=== PATIENT | female | born 1980 | race African-American/Black ===

== ENCOUNTER 2018-04-03 10:23 | Inpatient (IN) ==
--- NOTE | 2018-04-03 11:24 | ED ---
History of Present Illness Primary Care Physician: No Primary Care Physician Chief Complaint: contractions History of Present Illness: Ms. Benites is a 37 y/o at 33 weeks gestation presenting to the OB ED with contractions. Patient was seen and evaluated by Dr. Calvo, last night , for contractions and was given 1 L of IV fluid, terbutaline, and IV fentanyl for tocolysis. Her urinalysis showed 30 of protein, small leukocyte esterase, and moderate bacteria. Culture is currently pending. Patient denied any dysuria/hematuria at the time and was not treated. She states that she was john before being evaluated last night, but that the contractions stopped after treatment. However, earlier this morning she states the contractions started again and continued until she visited the hospital. Currently she states that she is not john. She does endorse bilateral inguinal pain that she states is very sharp in nature. She scores the pain at 10/10, but is currently not experience the pain as it is positional. She also denies any decreased movement, vaginal bleeding, loss of fluid, or dysuria at this time. She states that her has not been complicated by anemia for which she takes oral iron. Otherwise her has been uncomplicated. She currently receives care at the care from clinic. Otherwise she has no acute complaints and denies any fevers, chills, shortness of breath, chest pain, NVD, or calf tenderness. Weeks Gestation:: 33 Para: 4 : 6 PMFSH - Tobacco History Smoking Status: Never smoker - Alcohol History How Often Do You Have a Drink Containing Alcohol: Monthly or less - Substance Use History Substance History: No History of Abuse - Travel History History of Recent Travel: No Medications and Allergies Allergies Allergy/AdvReac Type Severity Reaction Status Date / Time penicillin G Allergy Intermediate Rash Verified 04/02/18 20:42 Home Medications Medication Instructions Recorded Confirmed Type Vitamin 1 tab PO DAILY 02/19/18 04/03/18 History ferrous sulfate [Iron (ferrous 3 mg/kg PO DAILY 04/02/18 04/03/18 History sulfate)] vit C,Q-We-jfsid-lutein-zeaxan 1 cap PO DAILY 04/02/18 04/03/18 History Exam Vital signs: Vital Signs 04/03/18 10:38 04/03/18 10:44 Temperature 99.5 F Pulse Rate 105 H Respiratory Rate 18 Blood Pressure 144/89 H Results - Labs CBC & Chem 7: 04/03/18 15:40 04/03/18 15:40 Assessment and Plan - Diagnosis (1) 33 weeks gestation of Code(s): Z3A.33 - 33 weeks gestation of Status: Acute Plan: 37-year-old presenting at 33 weeks gestation with contractions. care with [facility]. Patient evaluated last night, 04/02/18, for contractions and treated with 1 L IV fluid, terbutaline, and fentanyl for tocolysis OB ultrasound ordered for cervical length for further evaluation which showed cervical length of 1.3 cm with passive tunneling concerning for labor. Baby is also in the transverse lie. heart tracing category 1, reassuring Patient to be admitted to antepartum at this time for shortened cervix affecting with increased risk of delivery Clindamycin ordered for GBS prophylaxis as she is penicillin allergic Magnesium sulfate ordered with bolus for tocolysis Betamethasone 12 mg daily for 2 days ordered for lung maturity Patient to continue with oral iron for anemia SDW: Dr. Sharma (2) Round ligament pain Code(s): N94.9 - Unspecified condition associated with female genital organs and menstrual cycle Status: Acute (3) Anemia Code(s): D64.9 - Anemia, unspecified Status: Acute (4) AMA (advanced maternal age) multigravida 35+ Code(s): O09.529 - Supervision of elderly multigravida, unspecified trimester Status: Acute (5) Cervical shortening affecting in third trimester Code(s): O26.873 - Cervical shortening, third trimester Status: Acute Discharge Plan - Discharge Condition Condition: Stable - Discharge Details Anticipated Discharge Date: 04/03/18 Discharge Comment: OB follow up within the week - Physicians Team Primary Care Provider: Primary Care Lashawn Cardona Attending Provider: Saige Sharma
[2018-04-03] MEDS ORDERED: Acetaminophen 325 MG Tablet PO PRN (14:29)
[2018-04-03] MEDS ORDERED: Clindamycin 900 mg/NS Premix 900 MG/50 ML PIGGYBACK IV.SIG SCH (14:30)
[2018-04-03] MEDS ORDERED: Mag Sulf/Water 4 gm/100 ml 100 ML IV.SIG ONE (14:32)
[2018-04-03] MEDS: Betamethasone Sod Phos/Acetate Inj 30 MG/5 ML Vial IM SCH (15:15)
[2018-04-03] MEDS: Mag Sulf/Water 40 gm/1000 ml 40 GM/1,000 ML BAG IV.CONT SCH (16:21)
[2018-04-03 16:41] LABS: Baso % (Auto) 0.2 % (0.0-2.0); Eos # (Auto) 0.2 th/mm3 (0.0-0.4); Eos % (Auto) 2.2 % (0.0-4.0); Hematocrit 29.6 % (35.0-46.0); Lymph # (Auto) 1.7 th/mm3 (1.0-4.8); Lymph % (Auto) 22.1 % (9.0-44.0); Mean Corpuscular HGB Conc 33.8 % (32.0-36.0); Mean Corpuscular Hemoglobin 27.6 pg (27.0-34.0); Mean Corpuscular Volume 81.7 fL (80.0-100.0); Mean Platelet Volume 8.6 fL (7.0-11.0); Mono # (Auto) 0.6 th/mm3 (0.0-0.9); Mono % (Auto) 8.3 % (0.0-8.0); Neut # (Auto) 5.2 th/mm3 (1.8-7.7); Neut % (Auto) 67.2 % (16.0-70.0); Platelet Count 217 th/mm3 (150-450); Red Blood Count 3.62 mil/mm3 (4.00-5.30); Red Cell Distribution Width 16.9 % (11.6-17.2); White Blood Count 7.7 th/mm3 (4.0-11.0)
[2018-04-03 17:03] LABS: Bacteria,Urine Occasional /hpf; Bilirubin,Urine Negative (Negative); Clarity,Urine Clear (Clear); Color,Urine Colorless (Yellw/Straw); Glucose,Urine (UA) Negative (Negative); Leukocyte Esterase,Urine Negative (Negative); Mucus,Urine Few /lpf (Occasional); Nitrite,Urine Negative (Negative); Specific Gravity,Urine 1.004 (1.002-1.035); Squamous Epithelial Cell,Urine <1 /hpf (0-5)
[2018-04-03 17:11] LABS: Alanine Aminotransferase 23 U/L (10-53); Anion Gap 9 meq/L (5-15); Aspartate Aminotransferase 14 U/L (15-37); Blood Urea Nitrogen 4 mg/dL (7-18); Calcium 8.7 mg/dL (8.5-10.1); Carbon Dioxide 25.3 meq/L (21.0-32.0); Chloride 105 meq/L (98-107); Glomerular Filtration Rate Greater Than 89 mL/min (>89); Glucose,Random 77 mg/dL (74-106); Potassium 3.7 meq/L (3.5-5.1); Sodium 139 meq/L (136-145)
[2018-04-03 17:13] LABS: Alkaline Phosphatase 95 U/L (45-117); Total Protein 7.2 g/dL (6.4-8.2)
[2018-04-03 17:50] LABS: Amphetamine Urine With Conf Neg (Neg); Benzodiazepine Urine With Conf Neg (Neg)
[2018-04-03] MEDS: Ferrous Sulfate 325 MG Tablet PO SCH (21:21)
[2018-04-04] MEDS: Clindamycin 900 mg/NS Premix 900 MG/50 ML PIGGYBACK IV.SIG SCH ×3 (00:15→16:05)
--- NOTE | 2018-04-04 08:39 | P.OBANTE ---
Subjective Interval History: 37-year-old presenting at 33 weeks gestation admitted for irregular contractions on 04/03/18. Patient seen and examined this morning. She states that the contractions and abdominal cramping that she was experiencing on arrival to the OB ED have now resolved. Denies vaginal bleeding, fluid loss or decreased movement. Denies nausea, vomiting, chest pain, shortness of breath, leg pain or edema. Antepartum ROS: Reports: movement normal Denies: Loss of fluid, Vaginal bleeding Objective Vital Signs and I&O: Vital Signs 04/03/18 10:38 04/03/18 10:44 04/03/18 12:19 Temperature 99.5 F Pulse Rate 105 H 101 H Respiratory Rate 18 Blood Pressure 144/89 H 118/81 04/03/18 16:15 04/03/18 16:25 04/03/18 16:45 Temperature Pulse Rate 103 H 97 H Respiratory Rate 18 Blood Pressure 126/89 122/83 04/03/18 17:15 04/03/18 17:29 04/03/18 18:24 Temperature 98.8 F Pulse Rate 104 H 103 H Respiratory Rate 17 18 Blood Pressure 129/71 127/82 04/03/18 19:00 04/03/18 19:30 04/03/18 20:01 Temperature Pulse Rate 106 H 107 H 111 H Respiratory Rate 18 Blood Pressure 132/69 129/60 136/74 04/03/18 20:30 04/03/18 22:30 04/03/18 23:01 Temperature 97.7 F Pulse Rate 100 H 106 H Respiratory Rate 18 16 Blood Pressure 128/80 109/69 04/03/18 23:30 04/04/18 00:00 04/04/18 00:30 Temperature 98.1 F Pulse Rate 100 H Respiratory Rate 18 18 Blood Pressure 113/75 04/04/18 01:00 04/04/18 01:30 04/04/18 02:00 Temperature Pulse Rate 104 H 102 H 101 H Respiratory Rate 18 Blood Pressure 114/68 106/68 04/04/18 04:00 04/04/18 05:25 04/04/18 05:30 Temperature 97.6 F Pulse Rate 93 H Respiratory Rate 20 Blood Pressure 105/60 100/63 04/04/18 06:00 04/04/18 06:21 04/04/18 07:00 Temperature Pulse Rate 101 H 103 H Respiratory Rate 18 Blood Pressure 109/68 115/75 04/04/18 07:30 04/04/18 08:00 Temperature Pulse Rate 101 H Respiratory Rate 17 Blood Pressure 125/73 Intake & Output 04/03/18 04/04/18 04/04/18 18:59 06:59 18:59 Intake Total 50 / 50 1050 / 1050 Balance 50 / 50 1050 / 1050 Weight 87.997 kg Intake: IV 50 / 50 1050 / 1050 LR 1000 mL Inj 1,000 ML @ 75 1000 / 1000 mls/hr IV.CONT .[id number] [facility] Rx# :[id number] Cleocin 900 mg/NS Premix 900 mg 50 / 50 50 / 50 In 50 ml @ 100 mls/hr IV.SIG Q8H [facility] Rx#:[id number] Magnesium Sulfate/Water 4 gm/ 0 / 0 100 ml Premix 100 ML @ 300 mls/ hr IV.SIG ONCE ONE Rx#:[id number] Other: Weight On Admission 87.997 kg Lab and Micro Results: Laboratory Results - last 24 hr 04/03/18 04/03/18 04/03/18 13:31 13:31 15:40 WBC RBC Hgb Hct MCV MCH MCHC RDW Plt Count MPV Neut % (Auto) Lymph % (Auto) [place] % (Auto) Eos % (Auto) Baso % (Auto) Neut # (Auto) Lymph # (Auto) [place] # (Auto) Eos # (Auto) Baso # (Auto) WBC Differential Differential Comment Sodium Potassium Chloride Carbon Dioxide Anion Gap BUN Creatinine Estimated GFR Random Glucose Calcium Total Bilirubin AST ALT Alkaline Phosphatase Total Protein Albumin Urine Color Colorless Urine Clarity Clear Urine pH 7.0 Ur Specific [place] 1.004 Urine Protein Negative Urine Glucose (UA) Negative Urine Ketones Negative Urine Occult Blood Small H Urine Nitrate Negative Urine Bilirubin Negative Urine Urobilinogen Less than 2 Ur Leukocyte Esterase Negative Urine RBC 11 H Urine WBC 1 Ur Squamous Epith Cells <1 Urine Bacteria Occasional H Urine Mucus Few H Micro UA Comment Culture not ind Ur Microscopic Review Not Reportable Urine Culture Comments Culture not ind Urine Opiates Screen Neg Ur Barbiturates Screen Neg Ur Amphetamine Screen Neg U Benzodiazepines Scrn Neg Urine Cocaine Screen Neg U Cannabinoids Screen Neg Blood Type A Positive Blood Type Recheck Required Antibody Screen Negative 04/03/18 04/03/18 15:40 15:40 WBC 7.7 RBC 3.62 L Hgb 10.0 L Hct 29.6 L MCV 81.7 MCH 27.6 MCHC 33.8 RDW 16.9 Plt Count 217 MPV 8.6 Neut % (Auto) 67.2 Lymph % (Auto) 22.1 [place] % (Auto) 8.3 H Eos % (Auto) 2.2 Baso % (Auto) 0.2 Neut # (Auto) 5.2 Lymph # (Auto) 1.7 [place] # (Auto) 0.6 Eos # (Auto) 0.2 Baso # (Auto) 0.0 WBC Differential . Differential Comment Auto diff final Sodium 139 Potassium 3.7 Chloride 105 Carbon Dioxide 25.3 Anion Gap 9 BUN 4 L Creatinine 0.48 L Estimated GFR Greater than 89 Random Glucose 77 Calcium 8.7 Total Bilirubin 0.3 AST 14 L ALT 23 Alkaline Phosphatase 95 Total Protein 7.2 Albumin 3.0 L Urine Color Urine Clarity Urine pH Ur Specific [place] Urine Protein Urine Glucose (UA) Urine Ketones Urine Occult Blood Urine Nitrate Urine Bilirubin Urine Urobilinogen Ur Leukocyte Esterase Urine RBC Urine WBC Ur Squamous Epith Cells Urine Bacteria Urine Mucus Micro UA Comment Ur Microscopic Review Urine Culture Comments Urine Opiates Screen Ur Barbiturates Screen Ur Amphetamine Screen U Benzodiazepines Scrn Urine Cocaine Screen U Cannabinoids Screen Blood Type Blood Type Recheck Antibody Screen Physical Exam: GENERAL: Well-nourished, well-developed patient. Resting comfortably in bed. CARDIOVASCULAR: Regular rate and rhythm without murmurs, gallops, or rubs. RESPIRATORY: Breath sounds equal bilaterally. No accessory muscle use. ABDOMEN/GI: Abdomen soft, non-tender. Fundus: gravid to 33 weeks FHT's: Category: 1 Baseline: 130-140s Reactive: yes Variability: moderate Decels: none EXTREMITIES: No cyanosis or edema, non-tender, without signs of DVT. Assessment and Plan - Diagnosis (1) 33 weeks gestation of Code(s): Z3A.33 - 33 weeks gestation of Status: Acute Plan: 37-year-old presenting at 33 weeks gestation with contractions. care with [facility]. Patient evaluated on 04/02/18 for contractions and treated with 1 L IV fluid, terbutaline, and fentanyl for tocolysis OB ultrasound ordered for cervical length for further evaluation which showed cervical length of 1.3 cm with passive tunneling concerning for labor. Baby is also in the transverse lie. Patient admitted to antepartum yesterday for shortened cervix affecting with increased risk of delivery Clindamycin 900mg q8hr ordered for GBS prophylaxis as she is penicillin allergic Magnesium sulfate with bolus given for tocolysis, started on 04/03 at 16:22 Betamethasone 12 mg daily for 2 days ordered for lung maturity, started on 04/03 Patient to continue with oral iron for anemia heart tracing category 1, reassuring -Continue to monitor FHT DW: Dr. Garcia (2) Round ligament pain Code(s): N94.9 - Unspecified condition associated with female genital organs and menstrual cycle Status: Acute (3) Anemia Code(s): D64.9 - Anemia, unspecified Status: Acute (4) AMA (advanced maternal age) multigravida 35+ Code(s): O09.529 - Supervision of elderly multigravida, unspecified trimester Status: Acute (5) Cervical shortening affecting in third trimester Code(s): O26.873 - Cervical shortening, third trimester Status: Acute
[2018-04-04] MEDS: Ferrous Sulfate 325 MG Tablet PO SCH ×2 (09:16→22:56)
[2018-04-04] MEDS: Prenatal Vit/Ca/Iron/Folic Acid Tablet PO SCH (09:16)
[2018-04-04] MEDS: Mag Sulf/Water 40 gm/1000 ml 40 GM/1,000 ML BAG IV.CONT SCH (12:38)
[2018-04-04] MEDS: Betamethasone Sod Phos/Acetate Inj 30 MG/5 ML Vial IM SCH (15:18)
[2018-04-05] MEDS ORDERED: NIFEdipine 10 MG Capsule PO SCH ×2 (04:30→11:00)
[2018-04-05] MEDS: Prenatal Vit/Ca/Iron/Folic Acid Tablet PO SCH (08:50)
[2018-04-05] MEDS: Ferrous Sulfate 325 MG Tablet PO SCH (08:50)
--- NOTE | 2018-04-05 10:11 | P.OBANTE ---
Subjective Interval History: Patient seen and examined this morning. She has no complaints. She is not feeling any contractions at this time. Requests a rx for her vitamins. Antepartum ROS: Denies: New complaints, Loss of fluid, Vaginal bleeding, movement normal Objective Vital Signs and I&O: Vital Signs 04/04/18 11:00 04/04/18 12:01 04/04/18 13:00 Temperature Pulse Rate 107 H 107 H 103 H Respiratory Rate Blood Pressure 138/86 135/84 129/82 04/04/18 13:30 04/04/18 14:00 04/04/18 14:30 Temperature 98.6 F Pulse Rate 104 H Respiratory Rate 18 Blood Pressure 136/91 H 04/04/18 15:12 04/04/18 16:00 04/04/18 17:00 Temperature Pulse Rate 95 H 96 H 98 H Respiratory Rate Blood Pressure 116/73 120/74 114/80 04/04/18 17:30 04/04/18 18:00 04/04/18 18:23 Temperature Pulse Rate 103 H Respiratory Rate 17 17 Blood Pressure 132/88 04/04/18 19:30 04/04/18 23:30 04/05/18 03:13 Temperature Pulse Rate 104 H 103 H 94 H Respiratory Rate 18 18 Blood Pressure 126/86 138/74 126/80 04/05/18 03:30 04/05/18 05:00 04/05/18 08:34 Temperature 98.3 F Pulse Rate 104 H 97 H Respiratory Rate 16 18 18 Blood Pressure 112/63 117/60 Intake & Output 04/04/18 04/05/18 04/05/18 18:59 06:59 18:59 Intake Total 1050 / 1050 Balance 1050 / 1050 Intake: IV 1050 / 1050 Magnesium Sulfate/Water 40 gm/ 1000 / 1000 1000 ml Premix 40 gm In 1,000 ml @ 2 GM/HR 50 mls/hr IV.CONT Q24H [facility] Rx#:[id number] Cleocin 900 mg/NS Premix 900 mg 50 / 50 In 50 ml @ 100 mls/hr IV.SIG Q8H [facility] Rx#:[id number] Physical Exam: GENERAL: Well-nourished, well-developed patient. CARDIOVASCULAR: Regular rate and rhythm without murmurs, gallops, or rubs. RESPIRATORY: Breath sounds equal bilaterally. No accessory muscle use. ABDOMEN/GI: Abdomen soft, non-tender. Fundus: gravid to 33 weeks FHT's: Category: 1 Baseline: 120s Reactive: yes Variability: moderate Decels: none EXTREMITIES: No cyanosis or edema, non-tender, without signs of DVT. Assessment and Plan - Diagnosis (1) 33 weeks gestation of Code(s): Z3A.33 - 33 weeks gestation of Status: Acute Plan: 37-year-old presenting at 33/3 weeks gestation with contractions. care with [facility]. Patient evaluated on 04/02/18 for contractions and treated with 1 L IV fluid, terbutaline, and fentanyl for tocolysis OB ultrasound ordered for cervical length for further evaluation which showed cervical length of 1.3 cm with passive funneling concerning for labor. Baby is also in the transverse lie. Patient admitted to antepartum for shortened cervix affecting with increased risk of delivery Clindamycin 900mg q8hr ordered for GBS prophylaxis as she is penicillin allergic (04/03-04/04) Magnesium sulfate with bolus given for tocolysis for 24 hrs (04/03-04/04) Betamethasone 12 mg daily for 2 days given for lung maturity, (04/03 -04/04 ) Patient to continue with oral iron for anemia -Started on Procardia 10mg q8h for tocolysis, will provide Rx to go home with heart tracing category 1, reassuring -Will d/c home -F/u with OB provider in 24-48 hours SDW: Dr. Phoenix (2) Round ligament pain Code(s): N94.9 - Unspecified condition associated with female genital organs and menstrual cycle Status: Acute (3) Anemia Code(s): D64.9 - Anemia, unspecified Status: Acute (4) AMA (advanced maternal age) multigravida 35+ Code(s): O09.529 - Supervision of elderly multigravida, unspecified trimester Status: Acute (5) Cervical shortening affecting in third trimester Code(s): O26.873 - Cervical shortening, third trimester Status: Acute
== END 2018-04-05 15:32 | disposition home or self-care (01) ==
LOC: HOBED 10:23 → H2E 10:23
PROVIDERS: ADMIT Obstetrics & Gynecology; ATTEND Obstetrics & Gynecology

== ENCOUNTER 2018-04-24 06:19 | Inpatient (IN) ==
[2018-04-24 06:47] VITALS: TEMP 99.7
[2018-04-24 07:02] VITALS: RESP 17
[2018-04-24] MEDS ORDERED: fentaNYL Citrate Inj 100 MCG/2 ML Ampul IV.PUSH PRN ×2 (07:32)
[2018-04-24] MEDS ORDERED: Oxytocin 30 Units/500ml Premix 30 UNITS/500 ML BAG IV.SIG ONE (07:32)
[2018-04-24] MEDS ORDERED: Sod Chloride 0.9% Inj 1,000 ML IV.CONT PRN (07:32)
[2018-04-24] MEDS ORDERED: Sodium Chlor 0.9% Inj 500 ML IV.SIG PRN (07:32)
[2018-04-24] MEDS ORDERED: Naloxone Inj 0.4 MG/ML Vial IV.PUSH PRN (07:32)
--- NOTE | 2018-04-24 07:41 | P.HPOB ---
Patient Name: Claire Benites Date of : 82 Patient Status: Emergency Emergency Provider: Saige Garcia Date: 04/24/18 07:34 Initialization Date: 04/24/18 07:34 History of Present Illness Primary Care Physician: [facility] Chief Complaint: Contractions History of Present Illness: 37-year-old at 36 weeks and 2 days presents complaining of contractions. During this she was admitted noted to be transverse lie 2 weeks ago advanced maternal age patient states blood pressure is mildly elevated at the end of also card reveals BPs 130/84 her last 2 visits. 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 Past medical history denies chronic hypertension Allergies Pen G Social history negative x3 Weeks Gestation:: 36 Para: 4 : 6 Review of Systems All other systems reviewed negative except as stated in HPI PMFSH - Tobacco History Smoking Status: Never smoker - Alcohol History How Often Do You Have a Drink Containing Alcohol: Monthly or less - Substance Use History Substance History: No History of Abuse - Travel History History of Recent Travel: No Medications and Allergies Active Medications: Active Medications Citric Acid/Sodium Citrate (Sodium Citrate/Citric Acid Liq) 30 ml PO TRAFFIC ASSISTANT [facility] Stop: 04/28/18 07:44 Fentanyl Citrate (Fentanyl Inj) 50 mcg IV.PUSH Q1H PRN PRN Reason: Pain Scale 3 - 5 Fentanyl Citrate (Fentanyl Inj) 100 mcg IV.PUSH Q1H PRN PRN Reason: PAIN SCALE 6 TO 10 Lactated Ringer's (Lr 1000 Ml Inj) 1,000 mls @ 3,000 mls/hr IV.SIG UNSCH PRN PRN Reason: compromise or epidural Lactated Ringer's (Lr 1000 Ml Inj) 1,000 mls @ 125 mls/hr IV.CONT .Q8H [facility] Lidocaine HCl (Xylocaine 1% Inj) 10 ml INFILTRATN PRN PRN PRN Reason: For episiotomy repair Stop: 04/26/18 07:31 Allergies Allergy/AdvReac Type Severity Reaction Status Date / Time penicillin G Allergy Intermediate Rash Verified 04/02/18 20:42 Home Medications Medication Instructions Recorded Confirmed Type Vitamin 1 tab PO DAILY 02/19/18 04/03/18 History ferrous sulfate [Iron (ferrous 3 mg/kg PO DAILY 04/02/18 04/03/18 History sulfate)] vit C,R-Zk-eqgzm-lutein-zeaxan 1 cap PO DAILY 04/02/18 04/03/18 History Exam Vital signs: Vital Signs 04/24/18 06:43 04/24/18 06:45 04/24/18 06:46 Temperature 99.7 F H Pulse Rate 106 H Respiratory Rate 18 20 Blood Pressure 154/82 H 04/24/18 07:00 04/24/18 07:01 Temperature Pulse Rate 108 H Respiratory Rate 17 Blood Pressure 143/96 H - Constitutional mild distress - Routine HEENT Exam Head: Present: normocephalic ENT: Present: mucous membranes moist - Routine Neck Exam Present: supple - Routine Chest/Breast/Axilla Exam Chest wall: Absent: tenderness Breast: Absent: tenderness - Routine Respiratory Exam Absent: accessory muscle use - Routine Cardiovascular Exam Present: RRR - Routine Abdominal Exam Present: soft (Gravid. heart rate initially variable decelerations noted category 2 no category 1 with uterine contractions present) - Routine Exam Comments: Cervical exam 3-4 cm 70% effaced -1 station bulging membranes ballotable - Routine Neurological Exam Present: alert, oriented X3, normal reflexes Results - Imaging Limited ultrasound at the bedside by MD Vertex Assessment and Plan - Diagnosis (1) labor in third trimester Code(s): O60.03 - labor without delivery, third trimester Status: Acute (2) Advanced maternal age during in third trimester Status: Acute (3) Vertex presentation of fetus in third trimester Code(s): Z34.93 - Encounter for supervision of normal , unspecified, third trimester Status: Acute (4) 36 weeks gestation of Code(s): Z3A.36 - 36 weeks gestation of Status: Acute - Plan Admit possible labor starting however discussed with patient would not augment however would not stop the labor progress Discharge Plan - Physicians Team ED Provider: Saige Garcia Primary Care Provider: Primary Care Lashawn Cardona - Rxs /Orders / Referrals /Forms Prescriptions: No Action ferrous sulfate [Iron (ferrous sulfate)] 325 mg (65 mg iron) Tablet 1 tab PO DAILY PNV [id number] [ Multivitamins] 28 mg iron- 800 mcg Tablet 1 tab PO DAILY Qty: 30 RF: 0 Vitamin 1 tab PO DAILY vit C,I-Qq-oepiq-lutein-zeaxan 60 mg-13.5 mg- 15 mg-2 mg-6 mg Capsule 1 cap PO DAILY - Discharge Instructions Print Language: Maori
[2018-04-24] MEDS ORDERED: Citric Acid/Sodium Citrate Liq 30 ML UDC PO SCH (07:45)
[2018-04-24 08:27] LABS: Baso % (Auto) 0.3 % (0.0-2.0); Eos % (Auto) 0.6 % (0.0-4.0); Hemoglobin 10.6 gm/dL (11.6-15.3); Lymph # (Auto) 1.7 th/mm3 (1.0-4.8); Lymph % (Auto) 23.4 % (9.0-44.0); Mean Corpuscular HGB Conc 33.1 % (32.0-36.0); Mean Corpuscular Hemoglobin 27.5 pg (27.0-34.0); Mean Corpuscular Volume 83.3 fL (80.0-100.0); Mean Platelet Volume 8.4 fL (7.0-11.0); Mono # (Auto) 0.5 th/mm3 (0.0-0.9); Mono % (Auto) 6.3 % (0.0-8.0); Neut # (Auto) 5.2 th/mm3 (1.8-7.7); Neut % (Auto) 69.4 % (16.0-70.0); Platelet Count 214 th/mm3 (150-450); Red Blood Count 3.84 mil/mm3 (4.00-5.30); Red Cell Distribution Width 16.9 % (11.6-17.2); White Blood Count 7.5 th/mm3 (4.0-11.0)
[2018-04-24 08:35] LABS: Bacteria,Urine Moderate /hpf; Bilirubin,Urine Negative (Negative); Clarity,Urine Cloudy (Clear); Color,Urine Yellow (Yellw/Straw); Glucose,Urine (UA) Negative (Negative); Leukocyte Esterase,Urine Small (Negative); Mucus,Urine Few /lpf (Occasional); Nitrite,Urine Negative (Negative); Squamous Epithelial Cell,Urine 15 /hpf (0-5)
[2018-04-24 08:38] LABS: Amphetamine Urine With Conf Neg (Neg); Benzodiazepine Urine With Conf Neg (Neg); Cocaine Urine With Conf Neg (Neg); Opiates Urine With Conf Neg (Neg)
[2018-04-24 08:40] LABS: Cannabinoid Urine With Conf Neg (Neg)
[2018-04-24 09:10] VITALS: BP 142/93; PULSE 107
--- NOTE | 2018-04-24 09:54 | P.OBLABOR ---
Subjective Interval history: Pt seen and examined. No complains. She would like an epidural. Objective Vital Signs: Vital Signs - 8 hr 04/24/18 06:43 04/24/18 06:45 04/24/18 06:46 Temperature 99.7 F H Pulse Rate 106 H Respiratory Rate 18 20 Blood Pressure 154/82 H 04/24/18 07:00 04/24/18 07:01 04/24/18 07:15 Temperature Pulse Rate 108 H 109 H Respiratory Rate 17 Blood Pressure 143/96 H 141/92 H 04/24/18 08:45 04/24/18 09:01 Temperature Pulse Rate 104 H 107 H Respiratory Rate Blood Pressure 148/96 H 142/93 H Objective: Pelvic Exam: Cervix: posterior Dilatation: 3-4 cm Effacement: 70 Station: -1 Presentation: V Membranes: intact Uterine Contractions: No FHT's: Category: 1 Baseline: 150 Reactive: Non reactive Variability: mild variability Decels: No Assessment and Plan - Diagnosis (1) labor in third trimester Code(s): O60.03 - labor without delivery, third trimester Status: Acute (2) 36 weeks gestation of Code(s): Z3A.36 - 36 weeks gestation of Status: Acute - Plan 37 yr old female at 36/1 WGA Cervix, /-1 FHT non reactive, BS 150's but reassuring GBS Neg Continue routine OB care Anticipate vaginal delivery D/W Dr. Garcia and Dr. López
== END 2018-04-24 10:40 | disposition home or self-care (01) ==
LOC: HOBED 06:19 → H2E 07:37
PROVIDERS: ADMIT Obstetrics & Gynecology; ATTEND Obstetrics & Gynecology